=== PATIENT | male | born 1945 | race Caucasian/White ===

== ENCOUNTER 2022-01-16 09:15 | Emergency (ER) | payer MEDICARE ==
[~2022-01-16] VITALS: Ht 180.3 cm; Wt 113.4 kg
--- NOTE | 2022-01-16 09:24 | NUR ---
ARRIVAL PT AMBULATORY WITH TO ED6 WITH C/O LEFT FOOT PAIN THAT STARTED LAST SUNDAY AFTER ACCIDENTLY DROPPING A BRICK ON THE FOOT. THE PT STATES THAT THE PAIN IS RATED 0/10. ON INSPECTION THE FOOT IS EDEMATOUS, RED, WARM TO TOUCH. PTS VITALS OBTAINED. DR. KELLEY NOTIFIED OF PTS ARRIVAL.
[2022-01-16 09:31] VITALS: BP 180/97
[2022-01-16 09:38] VITALS: BP 180/97
--- NOTE | 2022-01-16 09:40 | ER.PDOC ---
General Chief Complaint: Extremities Stated Complaint: LT FOOT INJURY/EXTREMITIES Time seen by MD: 09:39 Source: patient Exam Limitations: no limitations History of Present Illness Initial Comments Left foot pain and swelling. A metal pipe fell on it 5 days ago. Patient takes Coumadin. Where: home Severity: moderate Context: crush Modifying Factors: pain on movement Allergies: Coded Allergies: No Known Allergies (Unverified , 01/16/22) Past Medical History Medical History: cardiac problems, high cholesterol, hypertension Surgical History: pacemaker/ICD Family History Significant Family History: no pertinent family hx Social History Smoking: non-smoker Alcohol Use: rarely Drug Use: none Review of Systems Constitutional: no symptoms reported EENTM: no symptoms reported Respiratory: no symptoms reported Cardiovascular: no symptoms reported Gastrointestinal: no symptoms reported Musculoskeletal: see HPI All Other Systems: Reviewed and Negative Physical Exam General Appearance: Alert, No Apparent Distress Foot: tenderness (left), swelling (left and not warm to touch), ecchymosis Ankle: nml inspection, non-tender, nml ROM, no joint swelling, skin intact Gait: normal Neuro: sensation nml, motor nml Vascular: no vascular compromise Tendons: tendon function nml Leg/Knee/Thigh: uninjured above ankle Skin: warm/dry Head/ENT: nml inspection, pharynx nml Neck/Back: nml inspection, non-tender Resp/CVS: no resp distress Abdomen: non-tender, no organomegaly Results/Orders Results/Orders Orders - DAVID KELLEY MD PT (01/16/22 09:38) Xr Foot Lt (01/16/22 09:38) Ct Lt Low Extremity Wo (01/16/22 10:18) Vital Signs Date Time Temp Pulse Resp B/P (MAP) Pulse Ox O2 Delivery O2 Flow Rate FiO2 01/16/22 11:02 97.6 81 18 168/69 (102) 97 Room Air 01/16/22 10:19 97.6 72 18 170/67 (101) 97 Room Air 01/16/22 09:38 97.6 87 18 180/97 (124) 95 Room Air 01/16/22 09:31 97.6 87 18 180/97 (124) 95 Room Air 01/16/22 09:31 97.6 87 18 01/16/22 09:31 97.6 87 18 95 Laboratory Tests Test 01/16/22 09:46 Prothrombin Time 34.2 SEC (9.1-11.5) H Prothrombin Time INR (Non-Therap) 3.[address] LLE: No fractures. 2. Subcutaneous edematous changes in the distal lower extremity consistent with cellulitis. Patient's INR is 3.5. Even though his left foot is swollen from contusion, he does not have fever. Since x-ray is concerning for cellulitis, I will start patient on Keflex. ER DEPART Departure Time of Disposition: 11:06 Disposition: HOME / SELF CARE / HOMELESS Impression: Primary Impression: Injury of foot, left Additional Impressions: Contusion of foot, left Cellulitis Condition: Stable Referrals: PCP,UNKNOWN (PCP) PRIMARY CARE PROVIDER Additional Instructions: Keflex Continue ibuprofen at home Follow-up with your PCP in 3 to 5 days Return to ED if worsening or concerns Duration or Time Spent with Pa: 20 min Problem Qualifiers Primary Impression: Injury of foot, left Encounter type: initial encounter Qualified Codes: S99.922A - Unspecified injury of left foot, initial encounter Additional Impressions: Contusion of foot, left Encounter type: initial encounter Qualified Codes: S90.32XA - Contusion of left foot, initial encounter Cellulitis Site of cellulitis: extremity Site of cellulitis of extremity: lower extremity Laterality: left Qualified Codes: L03.116 - Cellulitis of left lower limb DAVID KELLEY MD Jan 16, 2022 09:40
--- NOTE | 2022-01-16 10:07 | DIREP ---
PROCEDURE:XRAY FOOT MIN 3 VWS-LT COMPARISON:None. INDICATIONS:pain/injury FINDINGS: BONES:Small ossific density lateral to the 2nd proximal phalanx base. Findings may be on the basis of age-indeterminate fracture. Please correlate with point tenderness. No other findings worrisome for acute fracture. Achilles and plantar spurring of the calcaneus. JOINTS:No dislocation. LisFranc joint is intact. Borderline pes planus deformity. Degenerative change of the interphalangeal joints and midfoot. SOFT TISSUES:Soft tissue edema of the distal foot. OTHER:No additional findings. CONCLUSION: Small ossific density lateral to the 2nd proximal phalanx base. Findings may be on the basis of age-indeterminate fracture. Please correlate with point tenderness. There is soft tissue edema of the distal foot. Borderline pes planus deformity. Degenerative change of the interphalangeal joints and midfoot. Achilles and plantar spurring of the calcaneus. Dictated by: Bravo Fox MD on 01/16/2022 at 09:58 AM
[2022-01-16 10:19] VITALS: BP 170/67
--- NOTE | 2022-01-16 10:54 | DIREP ---
PROCEDURE:CT LOWER EXTREMITY-LT W/O COMPARISON:[facility], CR, XRAY FOOT MIN 3 VWS-LT, 01/16/2022, 09:43 AM. INDICATIONS:FOOT INJURY TECHNIQUE:Axial sections through the left foot and ankle were performed with sagittal and coronal reconstructions from source images. No contrast was administered. FINDINGS: BONES:No acute fractures. Enthesophyte formation posterior calcaneus at the insertion site of the Achilles tendon. Plantar spur along the calcaneus. There is a well corticated accessory ossicle along the lateral base of the 2nd proximal phalanx which is a normal variant. There is no periosteal elevation or lytic lesion. JOINTS:Normal. The articular surfaces are smooth and congruent. SOFT TISSUES:Arterial calcifications. Extensive subcutaneous edematous changes circumferentially about the lower leg, over the medial and lateral ankle and over the dorsum of the foot. No soft tissue mass lesions. OTHER:Negative. CONCLUSION: 1. No fractures. 2. Subcutaneous edematous changes in the distal lower extremity consistent with cellulitis. Dictated by: Osmel Arredondo M.D. on 01/16/2022 at 10:44 AM
[2022-01-16 11:02] VITALS: BP 168/69
== END 2022-01-16 11:15 | disposition home or self-care (01) ==
LOC: ER 09:15
DX: S90.32XA Contusion of left foot, initial encounter (principal); L03.116 Cellulitis of left lower limb; I10 Essential (primary) hypertension; E78.00 Pure hypercholesterolemia, unspecified; Z79.01 Long term (current) use of anticoagulants; W20.8XXA Other cause of strike by thrown, projected or falling object, initial encounter; Y93.89 Activity, other specified; Y92.89 Other specified places as the place of occurrence of the external cause; Y99.8 Other external cause status
CPT/HCPCS: 36415; 73700; 85610; 99284; 73630-LT